=== PATIENT | male | born 1965 | race Caucasian/White ===

== ENCOUNTER 2022-08-15 07:57 | Emergency (ER) | payer SELFPAY ==
[~2022-08-15] VITALS: Ht 185.4 cm; Wt 63.5 kg
[2022-08-15 08:00] VITALS: O2SAT 99
[2022-08-15] MEDS ORDERED: PENICILLIN V P500 MG PO (08:16)
[2022-08-15] MEDS ORDERED: ULTRAM 50MG50 MG PO (08:20)
== END 2022-08-15 08:33 | disposition home or self-care (01) ==
LOC: ER 08:04
DX: K08.89 Other specified disorders of teeth and supporting structures (principal); K02.9 Dental caries, unspecified; F17.210 Nicotine dependence, cigarettes, uncomplicated
CPT/HCPCS: 99283